=== PATIENT | female | born 1980 | race Caucasian/White ===

== ENCOUNTER 2020-04-01 05:57 | Inpatient (IN) | payer BC ==
--- OUTSIDE RECORDS SUMMARY | 2020-03-22 14:59 | XMS ---
:1980 Author Organization [facility] Support Name Relationship Address Phone [facility] Unavailable [address] [place] [address] RUPAL DIALLO MOTHER [address] [phone] [place] [address] Re-disclosure Warning The records that you are about to access may contain information from federally- assisted alcohol or drug abuse programs. If such information is present, then the following federally mandated warning applies: This information has been disclosed to you from records protected by federal confidentiality rules (42 CFR part 2). The federal rules prohibit you from making any further disclosure of this information unless further disclosure is expressly permitted by the written consent of the person to whom it pertains or as otherwise permitted by 42 CFR part 2. A general authorization for the release of medical or other information is NOT sufficient for this purpose. The Federal rules restrict any use of the information to criminally investigate or prosecute any alcohol or drug abuse patient.The records that you are about to access may contain highly sensitive health information, the redisclosure of which is protected by Article 27-F of the [facility] Public Health law. If you continue you may haveaccess to information: Regarding HIV / AIDS; Provided by facilities licensed or operated by the [facility] Office of Mental Health; or Provided by the [facility] Office for People With Developmental Disabilities. If such information is present, then the following [facility] mandated warning applies: This information has been disclosed to you from confidential records which are protected by state law. State law prohibits you from making any further disclosure of this information without the specific written consent of the person to whom it pertains, or as otherwise permitted by law. Any unauthorized further disclosure in violation of state law may result in a fine or senior care sentence or both. A general authorization for the release of medical or other information is NOT sufficient authorization for further disclosure. Insurance Providers Payer name Policy type / Policy ID Covered Covered constitution party's Policy Plan Coverage type constitution party ID relationship to Dia Information dia BC PPO [id number] SP [id number] Results ID Date Data Source [id number] 02/23/2020 02:48:00 PM EDT [facility] Name Value Range Interpretation Description Data Sup porting Code Source(s) Document(s ) SARS [facility] coronavirus 2 RNA This lab was ordered by CHRIS begum [facility] and reported by [facility]. Procedure
[2020-03-27 17:00] VITALS: BMI 38.3
--- OUTSIDE RECORDS SUMMARY | 2020-04-01 06:00 | XMS ---
:1980 Author Organization [facility] Support Name Relationship Address Phone YO[facility] Unavailable [address] [place] [address] [facility] Unavailable [address] [phone] [place] [address] RUPAL DIALLO MOTHER [address] [place] [address] Re-disclosure Warning The records that you are [...] is protected by Article 27-F of the [facility] Public Health law. If you continue you may haveaccess to information: Regarding HIV / AIDS; Provided by facilities licensed or operated by the [facility] Office of Mental Health; or Provided by the [facility] Office for People With Developmental Disabilities. If such information is present, then the following [facility] mandated warning applies: This information has [...] Policy type / Policy ID Covered Covered green party's Policy Plan Coverage type green party ID relationship to Dia Information dia [facility] [id number] [facility] [id number] Results ID Date Data Source [id number] 02/23/2020 02:48:00 PM EDT [facility] Name Value Range Interpretation Description Data Sup porting Code Source(s) Document(s ) SARS [facility] coronavirus 2 RNA This lab was ordered by CHRIS [facility] and reported by [facility]. Procedure
[2020-04-01] MEDS ORDERED: VANCOMYCIN 1,000 MG VIAL (RESTRICTED TO ID ONLY) ONE (07:06)
--- NOTE | 2020-04-01 07:09 | HP ---
History & Physical Update - Physical Physical: No Change - Assessment Assessment: No Change - Plan Plan: No Change
[2020-04-01] MEDS ORDERED: BUPIVICAINE 0.25%/MORPH PF/KETOROLAC - 51ML DISP.SYRINGE IA ONE ×2 (10:53→11:18)
[2020-04-01] MEDS ORDERED: VANCOMYCIN 1,000 MG VIAL (RESTRICTED TO ID ONLY) IVPB ONE (11:19)
[2020-04-01] MEDS ORDERED: MAG HYDROX/AL HYDROX/SIMETH 30 ML UNIT-DOSE CUP PO PRN (12:08)
[2020-04-01] MEDS ORDERED: ONDANSETRON 4 MG/2 ML VIAL IVPUSH PRN (12:08)
--- NOTE | 2020-04-01 12:11 | OPR ---
DATE OF OPERATION: 03/22/2020 TITLE OF OPERATION: Right total Knee Replacement PREOPERATIVE DIAGNOSIS: Right Knee Osteoarthritis POSTOPERATIVE DIAGNOSIS: Right Knee Medial Compartment Osteoarthritis SURGEON: Song Contreras DO EVALUATION ANALYST: Javad Gallego DO ANESTHESIA: Spinal anesthesia with regional block SPECIMEN: bone cuts PROSTHETIC DEVICE/IMPLANT: Triathlon X3 Asymmetric patella size 32mm, 10mm thickness; Triathlon Posterior Stabilized Femur Size 5; Triathlon Tibial Baseplate Size 4; Triathlon [id number] cemented tibia stem; Triathlon Tibial Bearing insert - PS - size 4, 11mm thickness. COMPLICATIONS: none EBL: 100mL TOURNIQUET TIME: 108 mins INDICATIONS FOR SURGERY: Ms. Huynh is a 40 year old female who presented in the preoperative setting with a chief complaint of severe right knee osteoarthritis with severe knee pain, and a notable valgus deformity; The patient was initially treated non- operatively with injections, medications, and physical therapy, but continued to have severe pain and ambulatory dysfunction. She was therefore indicated for a right total knee replacement with MAKOplasty robotic navigation. The risks and benefits of surgery and anesthesia were discussed in detail including but not limited to infection, continued pain, bleeding, blood clot, scarring/arthrofibrosis, damage to vessels and nerves, instability or loosening of implant, difficulty ambulating, dorina-prosthetic fracture, failure to obtain the desired result, failure to heal, failure to return to significant activity, need for additional surgery in the future. Understanding the risks and benefits, Ms. Huynh opted to proceed with surgical management. SURGEON'S NARRATIVE: On the day of surgery, the patient was taken to the operating room and placed on the OR table. Spinal anesthesia was administered by the anesthesiologist. The patient was then positioned supine on the table, and all bony prominences were padded. The knee was then prepped and draped in the usual sterile fashion, and IV antibiotics were given for infection prophylaxis. A surgical time-out was then performed with the team, and the patient's identity, procedure, side, availability of implants, and the administration of antibiotics were performed. With the knee flexed, two parallel bicortical self-drilling pins were placed in the tibial diaphysis after making stab incisions and bluntly dissecting down to bone. Two pins were then placed in the distal supracondylar femur. The knee was exanguinated and tourniquet inflated. A midline incision was then made and carried down through the subcutaneous fat to the underlying retinaculum. A medial parapatellar arthrotomy was performed. This was followed by a subperiosteal dissection of the tissue off the proximal, medial tibia. A portion of the fat pad was removed from under the patellar tendon, and a small portion of fat was excised off the distal supracondylar femur. Electrocautery was used to achieve hemostasis. The knee was then flexed further and the anterior horn of the lateral meniscus was released from the midline. Next, the anterior and posterior cruciate ligaments were transected. Grade 4 changes were noted diffusely throughout the knee. Femoral and tibial checkpoints were then placed in the appropriate locations. The VSE EVAKUATORY ROSSII navigation arrays were attached to the femoral and tibial pins and the lower extremity was then registered to the robotic navigation device using various joint movements, as well as inputting several dozen reference points. The knee was then taken through a full range of motion with a corrective force applied. Alignment in varus and valgus, as well as flexion and extension, and soft tissue balance was measured in various positions. The navigation device showed a numerical and graphic representation of the soft tissue balance. The components were repositioned virtually using the software until optimal soft tissue balance was achieved on the screen. Once this was accomplished, the final plan was saved and sent to the robot. Self-retaining retractors were then placed at the joint line for exposure and protection of the collateral ligaments. The robot was brought into the sterile field and registered with the navigation device. The robotic arm with attached oscillating saw blade was then used to perform femoral and tibial bone cuts as per the saved software plan. The femoral box cut was made using the appropriately - sized manual cutting guide. The knee was then irrigated. Trial components were placed and the knee was taken through a full range of motion to assess soft tissue balance and alignment. The range of motion was found to be excellent and the soft tissue balance was optimal and according to plan. The knee was then put into extension and the patella everted. The synovium around the patella was circumscribed with electrocautery. A caliper was used to measure the patellar thickness, and a saw was then used to resect the patella using a patella resection guide. The cut was then sized and drilled for the appropriate patellar button, with care taken to medialize it. A trial patella was then placed and the knee was again taken through a full range of motion. The knee was found to have both good balance and good patellar tracking. All of the components were removed except the tibial base plate. The appropriate instrumentation was used to drill and punch the proximal tibia for the keel of the final component. All bony surfaces were cleaned with the pulsatile lavage and dried. Bone cement was then prepared on the back table, and the final components were cemented in place in the usual fashion. Extruded cement was removed. The polyethylene trial was placed, the knee was put into extension, and axial pressure was applied for compression while the cement hardened. The patellar button was similarly cemented into place. Once the cement had hardened, the knee was taken through a full range of motion to assess stability, balance, and patellar tracking. This was found to be optimal and the trial polyethylene was exchanged for the appropriately sized real implant. An approximately three-minute diluted betadine soak was performed, followed by thorough pulsatile irrigation with normal saline. One gram of vancomycin powder was then spread around the joint tissues. A periarticular injection was used to locally infiltrate the capsular tissues surrounding the implant and prosthesis. Once this was done, the tourniquet was let down and all bleeders were cauterized. The parapatellar incision was closed with #1 Vicryl suture in a simple stitch fashion, and the subcuticular skin was closed with 0 Vicryl, 2-0 Vicryl suture, and the skin with jolly. The tibial and femoral pins were removed and the incisions were irrigated thorougly, then closed with 3-0 Monocryl suture. A sterile Aquacell dressing and RAJENDRA bandage was placed and the patient was placed in CHRIS stockings and bilateral SCD's. She tolerated procedure well and arrived in recovery in stable condition. POST-OP PLAN: Pain Control DVT Prophylaxis (ASA 325MG BID x 6 weeks; SCDs while in bed, encourage early ambulation) WBAT/Physical Therapy daily D/C Jolly POD 14 F/U Daily AM Labs Will see her in my office on POD 14 for a post-operative visit, wound check, and staple removal Medical management Dispo Planning
[2020-04-01] MEDS ORDERED: LACTATED RINGERS SOLUTION 1,000 ML IV SCH (12:15)
[2020-04-01 12:34] LABS: HEMATOCRIT 35.7 % (32.4-45.2); HEMOGLOBIN 11.6 GM/dl (10.7-15.3); MCH 28.5 pg (25.7-33.7); MCHC 32.6 g/dl (32.0-36.0); MEAN CELL VOLUME 87.6 fl (80-96); PLATELET COUNT 531 K/MM3 (134-434); RBC 4.07 M/mm3 (3.60-5.2); RDW 16.7 % (11.6-15.6); WHITE BLOOD COUNT 12.5 K/mm3 (4.0-10.8)
[2020-04-01] MEDS ORDERED: oxyCODONE HCL 5 MG TABLET PO PRN (13:24)
[2020-04-01] MEDS ORDERED: ACETAMINOPHEN 325 MG TABLET (FP) ONE (13:25)
[2020-04-01] MEDS: ACETAMINOPHEN 325 MG TABLET (FP) PO SCH ×3 (13:25→20:01)
[2020-04-01] MEDS ORDERED: clonazePAM 0.5 MG TABLET PO PRN (14:19)
--- NOTE | 2020-04-01 14:23 | HP ---
CHIEF COMPLAINT: Right knee pain Ortho: Dr. Contreras HISTORY OF PRESENT ILLNESS: 40 year-old female with a PMH significant for Iron-deficiency anemia with reactive thrombocytosis, opioid-induced constipation, celiac disease, depression, and right knee OA now s/p right total knee JOSE ROBERTO replacement with Dr. Contreras today. Recent Travel: No PAST MEDICAL HISTORY: Iron-deficiency anemia Thrombocytosis Opioid-induced constipation Celiac disease Osteoarthritis Depression PAST SURGICAL HISTORY: Bariatric lap band surgery 2004 Gastric sleeve 2010 Tummy tuck 2006 Excess skin removed on arms Breast implants Torn meniscus repair Social History: single, lives in [place], [employer]; works as a teacher in [employer] Smoking: quit 2015 Alcohol: social Drugs: no Family history: mother with DDD and OA; father healthy; sister with PE while on OCP and smoking; Allergies No Known Allergies Allergy (Verified 09/14/13 18:50) HOME MEDICATIONS: Home Medications Medication Instructions Recorded Duloxetine HCl [Cymbalta] 60 mg PO HS 02/15/20 clonazePAM [Klonopin -] 0.5 mg PO ASDIR PRN 02/15/20 Aripiprazole [Abilify -] 2 mg PO HS 03/27/20 Lamotrigine [Lamictal -] 100 mg PO HS 03/27/20 Oxycodone HCl/Acetaminophen 1 each PO TID 03/27/20 [Oxycodone-Acetaminophen 10-325] Quetiapine Fumarate [Seroquel -] 25 mg PO HS 03/27/20 Zolpidem Tartrate [Ambien] 10 mg PO HS PRN 03/27/20 REVIEW OF SYSTEMS CONSTITUTIONAL: Absent: fever, chills, diaphoresis, generalized weakness, malaise, loss of appetite, weight change HEENT: Absent: rhinorrhea, nasal congestion, throat pain, throat swelling, difficulty swallowing, mouth swelling, ear pain, eye pain, visual changes CARDIOVASCULAR: Absent: chest pain, syncope, palpitations, irregular heart rate, lightheadedness, peripheral edema RESPIRATORY: Absent: cough, shortness of breath, dyspnea with exertion, orthopnea, wheezing, stridor, hemoptysis GASTROINTESTINAL: Absent: abdominal pain, abdominal distension, nausea, vomiting, diarrhea, constipation, melena, hematochezia GENITOURINARY: Absent: dysuria, frequency, urgency, hesitancy, hematuria, flank pain, genital pain MUSCULOSKELETAL: Absent: myalgia, arthralgia, joint swelling, back pain, neck pain SKIN: Absent: rash, itching, pallor HEMATOLOGIC/IMMUNOLOGIC: Absent: easy bleeding, easy bruising, lymphadenopathy, frequent infections ENDOCRINE: Absent: unexplained weight gain, unexplained weight loss, heat intolerance, cold intolerance NEUROLOGIC: Absent: headache, focal weakness or paresthesias, dizziness, unsteady gait, seizure, mental status changes, bladder or bowel incontinence PSYCHIATRIC: Absent: anxiety, depression, suicidal or homicidal ideation, hallucinations. PHYSICAL EXAMINATION Vital Signs - 24 hr 04/01/20 04/01/20 04/01/20 06:40 12:05 12:10 Temperature 98.4 F 98.4 F Pulse Rate 82 87 80 Respiratory 18 15 16 Rate Blood Pressure 114/84 105/53 L 101/61 O2 Sat by Pulse 100 100 100 Oximetry (%) 04/01/20 04/01/20 04/01/20 12:15 12:30 12:45 Temperature Pulse Rate 75 77 68 Respiratory 18 16 17 Rate Blood Pressure 102/51 L 99/56 L 99/61 O2 Sat by Pulse 100 100 97 Oximetry (%) 04/01/20 04/01/20 04/01/20 13:00 13:15 13:30 Temperature Pulse Rate 69 64 65 Respiratory 17 18 16 Rate Blood Pressure 104/66 101/60 108/67 O2 Sat by Pulse 97 99 99 Oximetry (%) GENERAL: Awake, alert, and fully oriented, in no acute distress. HEAD: Normal with no signs of trauma. EYES: Pupils equal, round and reactive to light, extraocular movements intact, sclera anicteric, conjunctiva clear. No lid lag. EARS, NOSE, THROAT: Ears normal, nares patent, oropharynx clear without exudates. Moist mucous membranes. NECK: Normal range of motion, supple without lymphadenopathy, JVD, or masses. LUNGS: Breath sounds equal, clear to auscultation bilaterally. No wheezes, and no crackles. No accessory muscle use. HEART: Regular rate and rhythm, normal S1 and S2 without murmur, rub or gallop. ABDOMEN: Soft, nontender, not distended, normoactive bowel sounds, no guarding, no rebound, no masses. No hepatomegaly or splenomegaly. MUSCULOSKELETAL: Normal range of motion at all joints. No bony deformities or tenderness. No CVA tenderness. UPPER EXTREMITIES: 2+ pulses, warm, well-perfused. No cyanosis. No clubbing. No peripheral edema. LOWER EXTREMITIES: 2+ pulses, warm, well-perfused. No calf tenderness. No peripheral edema. NEUROLOGICAL: Cranial nerves II-XII intact. Normal speech. Normal gait. PSYCHIATRIC: Cooperative. Good eye contact. Appropriate mood and affect. SKIN: Warm, dry, normal turgor, no rashes or lesions noted, normal capillary refill. Laboratory Results - last 24 hr 04/01/20 12:15 WBC 12.5 H RBC 4.07 Hgb 11.6 Hct 35.7 MCV 87.6 MCH 28.5 MCHC 32.6 RDW 16.7 H Plt Count 531 H MPV 9.0 Pre op Hgb 12.2 BUN 11 Cr 0.7 Intra op ASSESSMENT/PLAN: 40 year-old female with a PMH significant for Iron-deficiency anemia with reactive thrombocytosis, opioid-induced constipation, celiac disease, depression, and right knee OA now s/p right total knee JOSE ROBERTO replacement with Dr. Contreras today. Right total knee JOSE ROBERTO replacement --POD #0 --perioperative antibiotics per surgery --pain management per surgery, presently well-managed --ASA 325mg BID --protonix --bowel regimen --incentive spirometry Iron-deficiency anemia Thrombocytosis --pre-op heme workup considers thrombocytosis reactive to anemia and recommends standard post-operative anticoagulation Opioid-induced constipation --bowel regimen Celiac disease --not on gluten free diet Depression --continue Abilify, clonazepam, duloxetine, lamotrigine, seroquel FEN Fluids: PO intake adequate Electrolytes: replete as indicated Nutrition: regular diet DVT prophylaxis: OOB, ambulation, SCDs, TEDs, ASA 325 BID Physical therapy Dispo: continues to require inpatient care. Full code. Family Medical History Family History: As Documented Visit type - Emergency Visit Emergency Visit: No - New Patient This patient is new to me today: Yes Date on this admission: 04/01/20 - Critical Care Critical Care patient: No
[2020-04-01] MEDS ORDERED: ceFAZolin SODIUM 1 GM VIAL ONE ×2 (15:51→23:57)
[2020-04-01] MEDS ORDERED: DEXTROSE 5%-WATER 100 ML IVPB ONE ×2 (15:51→23:58)
[2020-04-01] MEDS: oxyCODONE HCL 5 MG TABLET PO PRN ×2 (16:07→20:02)
[2020-04-01] MEDS: CEFAZOLIN 3 GM in DEXTROSE 5%-WATER 100 ML IVPB SCH (17:28)
[2020-04-01] MEDS: GABAPENTIN 300 MG CAPSULE PO SCH (21:01)
[2020-04-01] MEDS: SENNOSIDES/DOCUSATE COMBO (SENNA PLUS) TABLET (UD) PO SCH (21:01)
[2020-04-01] MEDS: DULoxetine HCL 30 MG CAPSULE.DR PO SCH (21:01)
[2020-04-01] MEDS: lamoTRIgine 100 MG TABLET PO SCH (21:02)
[2020-04-01] MEDS: ASCORBIC ACID 500 MG TABLET (FP) PO SCH (21:02)
[2020-04-01] MEDS: ARIPiprazole 2 MG TABLET PO SCH (21:02)
[2020-04-01] MEDS: oxyCODONE HCL 10 MG SUSTAINED ACTING TABLET PO SCH (21:02)
[2020-04-01] MEDS: QUEtiapine FUMARATE 25 MG TABLET PO SCH (22:38)
[2020-04-02] MEDS: CEFAZOLIN 3 GM in DEXTROSE 5%-WATER 100 ML IVPB SCH (00:30)
[2020-04-02] MEDS: ACETAMINOPHEN 325 MG TABLET (FP) PO SCH ×4 (03:00→21:18)
[2020-04-02] MEDS ORDERED: KETOROLAC TROMETHAMINE 30 MG/1 ML VIAL IVPUSH ONE (08:22)
--- NOTE | 2020-04-02 08:22 | PN ---
Progress Note (short form) - Note Progress Note: Anesthesia postop note 40 y/o F s/p spinal anesthesia/nerve block for total knee replacement POD#1, vss, aaox3, some pain, sensory motor intact distally No anesthesia complications.
--- NOTE | 2020-04-02 08:28 | PN ---
Progress Note (short form) - Note Progress Note: ORTHOPEDIC SURGERY PROGRESS NOTE Department of Orthopedic Surgery SUBJECTIVE No acute events overnight. No complaints currently. Denies chest pain, shortness of breath, or calf pain. No nausea or vomiting. Tolerating oral intake. Pain control difficult overnight, but improving. PHYSICAL EXAMINATION General: Alert, oriented, cooperative and no distress. Right Lower Extremity: Dressing intact; Skin intact, no lesions, rashes or ulcers noted. Muscle mass equal and symmetric to contralateral side. No atrophy noted. No masses or effusions noted. No tenderness to palpation. LROM of the knee secondary to swelling and pain; Full passive and active ROM of the ankle and foot/toes, free from pain. EHL/TA/GS motor intact; SILT distally; 2+ DP pulses; Cap refill brisk. DVT Exam: No evidence of DVT seen on physical exam; No cords or calf tenderness; No significant calf/ankle edema. Intake & Output 03/31/20 04/01/20 04/02/20 23:59 23:59 23:59 Intake Total 7800 Output Total 800 Balance 7000 Intake: IV 1300 Oral 500 Other 6000 Output: Urine 700 Void 700 Estimated Blood Loss 100 Other: Voiding Method Urinal Toilet # Unmeasured Voids Void 1 Weight 245 lb Height 5 ft 7 in Body Mass Index (BMI) 38.3 Weight Measurement Method Standing Scale Active Medications Generic Name Dose Route Start Last Admin Trade Name Freq PRN Reason Stop Dose Admin Acetaminophen 650 mg 04/01/20 15:00 04/02/20 03:00 Tylenol - PO 04/04/20 14:59 650 mg Q6H CHAZ Administration Al Hydroxide/Mg Hydroxide 30 ml 04/01/20 12:08 Mylanta Oral Suspension - PO Q4H PRN DYSPEPSIA Aripiprazole 2 mg 04/01/20 22:00 04/01/20 21:02 Abilify PO 2 mg HS CHAZ Administration Ascorbic Acid 500 mg 04/01/20 22:00 04/01/20 21:02 Vitamin C - PO 500 mg BID CHAZ Administration Aspirin 325 mg 04/02/20 10:00 Asa - PO BID CHAZ Clonazepam 0.5 mg 04/01/20 14:19 Klonopin - PO Q12H PRN ANXIETY Duloxetine HCl 60 mg 04/01/20 22:00 04/01/20 21:01 Cymbalta - PO 60 mg HS CHAZ Administration Fentanyl 50 mcg 04/01/20 13:23 Sublimaze Injection - IVPUSH [id number] PRN PAIN-PACU ORDER X 4 DOSES ONLY Gabapentin 300 mg 04/01/20 22:00 04/01/20 21:01 Neurontin - PO 04/04/20 21:59 300 mg BID CHAZ Administration Ketorolac Tromethamine 30 mg 04/02/20 08:22 Toradol Injection - IVPUSH 04/02/20 08:23 ONCE ONE Lamotrigine 100 mg 04/01/20 22:00 04/01/20 21:02 Lamictal - PO 100 mg HS CHAZ Administration Multivitamins/Minerals/Vitamin C 1 tab 04/02/20 10:00 Tab-A-Vit - PO DAILY [facility] Ondansetron HCl 4 mg 04/01/20 12:08 Zofran Injection IVPUSH Q6H PRN NAUSEA Oxycodone HCl 10 mg 04/01/20 22:00 04/01/20 21:02 Oxycontin - PO 04/04/20 13:25 10 mg BID CHAZ Administration Oxycodone HCl 10 mg 04/01/20 13:24 Roxicodone - PO Q3H PRN PAIN LEVEL 1-5 Oxycodone HCl 15 mg 04/01/20 13:24 04/01/20 20:02 Roxicodone - PO 15 mg Q4H PRN Administration PAIN LEVEL 6-10 Pantoprazole Sodium 40 mg 04/02/20 10:00 Protonix - PO DAILY [facility] Quetiapine Fumarate 25 mg 04/01/20 22:00 04/01/20 22:38 Seroquel - PO 25 mg HS [facility] Administration Senna/Docusate Sodium 2 tablet 04/01/20 22:00 04/01/20 21:01 Pericolace - PO 2 tablet BID CHAZ Administration Vital Signs (last) Temp Pulse Resp BP Pulse Ox 98.0 F 76 18 108/55 L 97 04/02/20 06:00 04/02/20 06:00 04/02/20 06:00 04/02/20 06:00 04/02/20 06:00 Laboratory 04/01/20 12:15 ASSESSMENT AND PLAN Ms. Huynh is a 40 year old female s/p Right TKA, POD 1 - Pain control: Transition to oral pain medications, minimize narcotic use - DVT prophylaxis (ASA 325mg BID x 6 weeks; SCD's B/L) - Ice/Elevation Right knee - Elevate HOB, encourage oral intake - Appreciate medical management (Nutrition optimization, decubitus precautions heel/sacrum) - PT daily; WBAT - Dispo planning
[2020-04-02 08:33] LABS: CALCIUM 7.7 mg/dl (8.5-10); CREATININE 0.6 mg/dl (0.55-1.3); POTASSIUM 3.8 mmol/L (3.5-5.1)
--- NOTE | 2020-04-02 09:50 | PN ---
Physical Exam: SUBJECTIVE: Patient seen and examined in PT room. OBJECTIVE: Vital Signs Period Temp Pulse Resp BP Sys/Novoa Pulse Ox Last 24 Hr 98.0 F-98.7 F 64-87 15-18 99-115/51-68 95-100 GENERAL: The patient is awake, alert, and fully oriented, in no acute distress. LUNGS: Breath sounds equal, clear to auscultation bilaterally, no wheezes, no crackles, no accessory muscle use. HEART: Regular rate and rhythm, S1, S2 ABDOMEN: Soft, nontender, nondistended RLE: Surgical dressings c/d/i; +flex/extend toes, sensory intact NEUROLOGICAL: Cranial nerves II through XII grossly intact. Normal speech Laboratory Results - last 24 hr 04/01/20 04/02/20 12:15 07:01 WBC 12.5 H RBC 4.07 Hgb 11.6 Hct 35.7 MCV 87.6 MCH 28.5 MCHC 32.6 RDW 16.7 H Plt Count 531 H MPV 9.0 Sodium 138 Potassium 3.8 Chloride 109 H Carbon Dioxide 24 Anion Gap 5 L BUN 11.0 Creatinine 0.6 Est GFR (CKD-EPI)AfAm 130.30 Est GFR (CKD-EPI)NonAf 112.42 Random Glucose 94 Calcium 7.7 L Active Medications Generic Name Dose Route Start Last Admin Trade Name Freq PRN Reason Stop Dose Admin Acetaminophen 650 mg 04/01/20 15:00 04/02/20 08:36 Tylenol - PO 04/04/20 14:59 650 mg Q6H CHAZ Administration Al Hydroxide/Mg Hydroxide 30 ml 04/01/20 12:08 Mylanta Oral Suspension - PO Q4H PRN DYSPEPSIA Aripiprazole 2 mg 04/01/20 22:00 04/01/20 21:02 Abilify PO 2 mg HS CHAZ Administration Ascorbic Acid 500 mg 04/01/20 22:00 04/01/20 21:02 Vitamin C - PO 500 mg BID CHAZ Administration Aspirin 325 mg 04/02/20 10:00 Asa - PO BID CHAZ Clonazepam 0.5 mg 04/01/20 14:19 Klonopin - PO Q12H PRN ANXIETY Duloxetine HCl 60 mg 04/01/20 22:00 04/01/20 21:01 Cymbalta - PO 60 mg HS CHAZ Administration Fentanyl 50 mcg 04/01/20 13:23 Sublimaze Injection - IVPUSH [id number] PRN PAIN-PACU ORDER X 4 DOSES ONLY Gabapentin 300 mg 04/01/20 22:00 04/01/20 21:01 Neurontin - PO 04/04/20 21:59 300 mg BID CHAZ Administration Lamotrigine 100 mg 04/01/20 22:00 04/01/20 21:02 Lamictal - PO 100 mg HS CHAZ Administration Multivitamins/Minerals/Vitamin C 1 tab 04/02/20 10:00 Tab-A-Vit - PO DAILY CHAZ Ondansetron HCl 4 mg 04/01/20 12:08 Zofran Injection IVPUSH Q6H PRN NAUSEA Oxycodone HCl 10 mg 04/01/20 22:00 04/01/20 21:02 Oxycontin - PO 04/04/20 13:25 10 mg BID CHAZ Administration Oxycodone HCl 10 mg 04/01/20 13:24 Roxicodone - PO Q3H PRN PAIN LEVEL 1-5 Oxycodone HCl 15 mg 04/01/20 13:24 04/01/20 20:02 Roxicodone - PO 15 mg Q4H PRN Administration PAIN LEVEL 6-10 Pantoprazole Sodium 40 mg 04/02/20 10:00 Protonix - PO DAILY [facility] Quetiapine Fumarate 25 mg 04/01/20 22:00 04/01/20 22:38 Seroquel - PO 25 mg HS CHAZ Administration Senna/Docusate Sodium 2 tablet 04/01/20 22:00 04/01/20 21:01 Pericolace - PO 2 tablet BID CHAZ Administration ASSESSMENT/PLAN: 40 year-old female with a PMH significant for Iron-deficiency anemia with reactive thrombocytosis, opioid-induced constipation, celiac disease, depression, and right knee OA now s/p right total knee JOSE ROBERTO replacement. Right total knee JOSE ROBERTO replacement --POD #1 --perioperative antibiotics per surgery --pain management per surgery, presently well-managed --ASA 325mg BID --protonix --bowel regimen --incentive spirometry Iron-deficiency anemia Thrombocytosis --pre-op heme workup considers thrombocytosis reactive to anemia and recommends standard post-operative anticoagulation Opioid-induced constipation --bowel regimen Celiac disease --not on gluten free diet Depression --continue Abilify, clonazepam, duloxetine, lamotrigine, seroquel FEN Fluids: PO intake adequate Electrolytes: replete as indicated Nutrition: regular diet DVT prophylaxis: OOB, ambulation, SCDs, TEDs, ASA 325 BID Physical therapy Dispo: continues to require inpatient care. Full code. Visit type - Emergency Visit Emergency Visit: No - New Patient This patient is new to me today: No - Critical Care Critical Care patient: No
[2020-04-02] MEDS: SENNOSIDES/DOCUSATE COMBO (SENNA PLUS) TABLET (UD) PO SCH ×2 (10:05→21:17)
[2020-04-02] MEDS: ASCORBIC ACID 500 MG TABLET (FP) PO SCH ×2 (10:05→21:17)
[2020-04-02] MEDS: ASPIRIN 325 MG TABLET PO SCH ×2 (10:05→21:17)
[2020-04-02] MEDS: oxyCODONE HCL 10 MG SUSTAINED ACTING TABLET PO SCH (10:06)
[2020-04-02] MEDS: MULTIVITAMINS (DAILY MVI) TABLET (FP) PO SCH (10:06)
[2020-04-02] MEDS: PANTOPRAZOLE 40 MG TABLET PO SCH (10:06)
[2020-04-02] MEDS: GABAPENTIN 300 MG CAPSULE PO SCH ×2 (10:06→21:17)
[2020-04-02] MEDS: ACETAMINOPHEN 1000 MG/100 ML VIAL (NON FORMULARY) IVPB PRN ×2 (14:40→21:18)
[2020-04-02] MEDS: oxyCODONE HCL 5 MG TABLET PO PRN ×2 (17:32→21:18)
[2020-04-02] MEDS: lamoTRIgine 100 MG TABLET PO SCH (21:17)
[2020-04-02] MEDS: DULoxetine HCL 30 MG CAPSULE.DR PO SCH (21:17)
[2020-04-02] MEDS: QUEtiapine FUMARATE 25 MG TABLET PO SCH (21:17)
[2020-04-02] MEDS: ARIPiprazole 2 MG TABLET PO SCH (21:18)
[2020-04-03] MEDS: ACETAMINOPHEN 325 MG TABLET (FP) PO SCH ×2 (03:55→09:26)
[2020-04-03] MEDS: oxyCODONE HCL 5 MG TABLET PO PRN ×2 (06:01→09:27)
--- NOTE | 2020-04-03 08:18 | DS ---
"Physical Exam: SUBJECTIVE: Patient seen and examined. Seen walking with PT. OBJECTIVE: Vital Signs Period Temp Pulse Resp BP Sys/Novoa Pulse Ox Last 24 Hr 97.8 F-98.9 F 72-90 18-18 91-115/50-70 94-99 PHYSICAL EXAM GENERAL: The patient is awake, alert, and fully oriented, in no acute distress. LUNGS: Breath sounds equal, clear to auscultation bilaterally, no wheezes, no crackles, no accessory muscle use. HEART: Regular rate and rhythm, S1, S2 ABDOMEN: Soft, nontender, nondistended RLE: Surgical dressings c/d/i; +flex/extend toes, sensory intact NEUROLOGICAL: Cranial nerves II through XII grossly intact. Normal speech LABS Laboratory Results - last 24 hr 04/02/20 07:01 Sodium 138 Potassium 3.8 Chloride 109 H Carbon Dioxide 24 Anion Gap 5 L BUN 11.0 Creatinine 0.6 Est GFR (CKD-EPI)AfAm 130.30 Est GFR (CKD-EPI)NonAf 112.42 Random Glucose 94 Calcium 7.7 L HOSPITAL COURSE: Date of Admission:04/01/20 Date of Discharge: 04/03/20 40 year-old female with a PMH significant for iron-deficiency anemia with reactive thrombocytosis, opioid-induced constipation, celiac disease, depression, and right knee OA now s/p right total knee JOSE ROBERTO replacement. Right total knee JOSE ROBERTO replacement --perioperative antibiotics complete --pain management per surgery, presently well-managed; patient has adequate supply of percocet at home (see ISTOP below) --ASA 325mg BID x 6 weeks Iron-deficiency anemia Thrombocytosis --pre-op heme workup considers thrombocytosis reactive to anemia and recommends standard post-operative anticoagulation Opioid-induced constipation --bowel regimen Celiac disease --not on gluten free diet Depression --continue Abilify, clonazepam, duloxetine, lamotrigine, seroquel ISTOP Search Terms: yehuda huynh, 1980 Search Date: 04/03/2020 09:30:51 AM The Drug Utilization Report below displays all of the controlled substance prescriptions, if any, that your patient has filled in the last twelve months. The information displayed on this report is compiled from pharmacy submissions to the Department, and accurately reflects the information as submitted by the pharmacies. This report was requested by: Noemi Toledo | Reference #: [id number] Others' Prescriptions Patient Name: Yehuda Huynh Date: 1980 Address: [address] [place], [place] [id number] Sex: Female Rx Written Rx Dispensed Drug Quantity Days Supply Prescriber Name Payment Method Dispenser 03/27/2020 04/01/2020 zolpidem tartrate 10 mg tablet 30 30 Humphrey Ramos MD Insurance [facility] #[id number] 03/28/2020 04/01/2020 oxycodone-acetaminophen 10-325 mg tab 180 30 Stanley, Ous[employer] Insurance [facility] #[id number] 02/27/2020 03/02/2020 oxycodone-acetaminophen 10-325 mg tab 90 30 Stanley, [facility] Insurance [facility] #[id number] Date: 1980 Address: [address] [place] [id number] Sex: Female Rx Written Rx Dispensed Drug Quantity Days Supply Prescriber Name Payment Method Dispenser 01/15/2020 02/28/2020 zolpidem tartrate 10 mg tablet 30 30 Humphrey Ramos MD Insurance [facility] #[id number] 01/24/2020 01/30/2020 oxycodone-acetaminophen 10-325 mg tab 90 30 Stanley, [employer] Insurance [facility] #[id number] 01/15/2020 01/27/2020 zolpidem tartrate 10 mg tablet 30 30 RamosHumphrey peguero MD Insurance [facility] #[id number] 01/15/2020 01/15/2020 clonazepam 1 mg tablet 90 30 RamosHumphrey peguero MD Insurance [facility] #[id number] 12/20/2019 12/31/2019 oxycodone-acetaminophen 10-325 mg tab 90 30 Robert Caballero MD Insurance [facility] #[id number] 10/30/2019 12/27/2019 zolpidem tartrate 10 mg tablet 30 30 RamosHumphrey peguero MD Insurance [facility] #[id number] 11/27/2019 12/02/2019 oxycodone-acetaminophen 10-325 mg tab 90 30 Stanley, [employer] Insurance [facility] #[id number] 10/30/2019 11/27/2019 zolpidem tartrate 10 mg tablet 30 30 Ramos, Humphrey [employer] Insurance [facility] #[id number] 10/30/2019 11/01/2019 clonazepam 1 mg tablet 90 30 [id number] 11/01/2019 11/01/2019 oxycodone-acetaminophen 10-325 mg tab 60 30 Stanley, [employer] Insurance [facility] #[id number] 08/17/2019 10/28/2019 zolpidem tartrate 10 mg tablet 30 30 Ramos, Humphrey ASCENC[employer] Insurance [facility] #[id number] 08/17/2019 09/23/2019 zolpidem tartrate 10 mg tablet 30 30 Ramos, Humphrey [employer] Insurance [facility] #[id number] 09/06/2019 09/06/2019 oxycodone-acetaminophen 10-325 mg tab 60 30 Stanley, [employer] Insurance [facility] #[id number] 08/17/2019 08/25/2019 zolpidem tartrate 10 mg tablet 30 30 Ramos, Humphrey [employer] Insurance [facility] #[id number] 08/17/2019 08/17/2019 clonazepam 1 mg tablet 90 30 Ramos, Humphrey [employer] Insurance [facility] #[id number] 05/23/2019 07/25/2019 zolpidem tartrate 10 mg tablet 30 30 Ramos, Humphrey [employer] Insurance [facility] #[id number] 05/23/2019 06/23/2019 zolpidem tartrate 10 mg tablet 30 30 Ramos, Humphrey [employer] Insurance [facility] #[id number] 06/01/2019 06/01/2019 oxycodone-acetaminophen 10-325 mg tab 28 14 Stanley, [place] Insurance [facility] #[id number] 05/25/2019 05/27/2019 oxycodone-acetaminophen 5-325 mg tab 60 30 Stanley, [facility] Insurance [facility] #[id number] 05/23/2019 05/23/2019 clonazepam 1 mg tablet 90 30 Ramos, Humphrey [facility] #[id number] 05/23/2019 05/23/2019 zolpidem tartrate 10 mg tablet 30 30 Ramos, Humphrey [employer] Insurance [facility] #[id number] 03/06/2019 04/24/2019 zolpidem tartrate 10 mg tablet 30 30 Humphrey Ramos MD [facility] #[id number] Minutes to complete discharge: 35 Discharge Summary Problems reviewed: Yes Reason For Visit: RIGHT KNEE OA Condition: Improved - Instructions Diet, Activity, Other Instructions: Please follow all instructions given to you by Dr. Contreras and his surgical team. You have a scheduled appointment to see Dr. Contreras in 2 weeks. You will need to have your dressings changed on 04/06. Your aquacel dressing will be changed to xeroform, 4x4s, and RAJENDRA wrap. It is very important to take a full dose aspirin (325mg) twice a day for 6 weeks to avoid blood clots. Referrals: Song Contreras DO [Staff Physician] - Disposition: HOME - Home Medications Comprehensive Discharge Medication List: Ambulatory Orders Duloxetine HCl [Cymbalta] 60 mg PO HS 02/15/20 clonazePAM [Klonopin -] 0.5 mg PO ASDIR PRN 02/15/20 Aripiprazole [Abilify -] 2 mg PO HS 03/27/20 Lamotrigine [Lamictal -] 100 mg PO HS 03/27/20 Oxycodone HCl/Acetaminophen [Oxycodone-Acetaminophen 10-325] 1 each PO TID 03/27/20 Quetiapine Fumarate [Seroquel -] 25 mg PO HS 03/27/20 Zolpidem Tartrate [Ambien] 10 mg PO HS PRN 03/27/20 Prescription Drug Monitoring Program (I-STOP) results: I-STOP reviewed and no issues identified This patient is new to me today: No Emergency Visit: No Critical Care patient: No - Discharge Referral Referred to [facility] No"
--- NOTE | 2020-04-03 08:19 | PN ---
Progress Note (short form) - Note Progress Note: ORTHOPEDIC SURGERY PROGRESS NOTE Department of Orthopedic Surgery SUBJECTIVE No acute events overnight. No complaints currently. Denies chest pain, shortness of breath, or calf pain. No nausea or vomiting. Tolerating oral intake. Pain controlled. PHYSICAL EXAMINATION General: Alert, oriented, cooperative and no distress. Right Lower Extremity: Dressing intact; Skin intact, no lesions, rashes or ulcers noted. Muscle mass equal and symmetric to contralateral side. No atrophy noted. No masses or effusions noted. No tenderness to palpation. LROM of the knee secondary to swelling and pain; Full passive and active ROM of the ankle and foot/toes, free from pain. EHL/TA/GS motor intact; SILT distally; 2+ DP pulses; Cap refill brisk. DVT Exam: No evidence of DVT seen on physical exam; No cords or calf tenderness; No significant calf/ankle edema. Intake & Output 04/01/20 04/02/20 04/03/20 23:59 23:59 23:59 Intake Total 7800 500 Output Total 800 Balance 7000 500 Intake: IV 1300 Oral 500 500 Other 6000 Output: Urine 700 Void 700 Estimated Blood Loss 100 Other: Voiding Method Urinal Toilet Toilet # Unmeasured Voids Void 1 1 Weight 245 lb Height 5 ft 7 in Body Mass Index (BMI) 38.3 Weight Measurement Method Standing Scale Active Medications Generic Name Dose Route Start Last Admin Trade Name Freq PRN Reason Stop Dose Admin Acetaminophen 650 mg 04/01/20 15:00 04/03/20 03:55 Tylenol - PO 04/04/20 14:59 650 mg Q6H CHAZ Administration Acetaminophen 1,000 mg 04/02/20 14:04 04/02/20 21:18 Ofirmev Injection - IVPB 04/03/20 14:04 1,000 mg Q6H PRN Administration PAIN LEVEL 1-5 Al Hydroxide/Mg Hydroxide 30 ml 04/01/20 12:08 Mylanta Oral Suspension - PO Q4H PRN DYSPEPSIA Aripiprazole 2 mg 04/01/20 22:00 04/02/20 21:18 Abilify PO 2 mg HS CHAZ Administration Ascorbic Acid 500 mg 04/01/20 22:00 04/02/20 21:17 Vitamin C - PO 500 mg BID CHAZ Administration Aspirin 325 mg 04/02/20 10:00 04/02/20 21:17 Asa - PO 325 mg BID CHAZ Administration Clonazepam 0.5 mg 04/01/20 14:19 Klonopin - PO Q12H PRN ANXIETY Duloxetine HCl 60 mg 04/01/20 22:00 04/02/20 21:17 Cymbalta - PO 60 mg HS CHAZ Administration Gabapentin 300 mg 04/01/20 22:00 04/02/20 21:17 Neurontin - PO 04/04/20 21:59 300 mg BID CHAZ Administration Lamotrigine 100 mg 04/01/20 22:00 04/02/20 21:17 Lamictal - PO 100 mg HS CHAZ Administration Multivitamins/Minerals/Vitamin C 1 tab 04/02/20 10:00 04/02/20 10:06 Tab-A-Vit - PO 1 tab DAILY CHAZ Administration Ondansetron HCl 4 mg 04/01/20 12:08 Zofran Injection IVPUSH Q6H PRN NAUSEA Oxycodone HCl 10 mg 04/02/20 13:30 04/03/20 06:01 Roxicodone - PO 10 mg Q6H PRN Administration PAIN LEVEL 6-10 Pantoprazole Sodium 40 mg 04/02/20 10:00 04/02/20 10:06 Protonix - PO 40 mg DAILY CHAZ Administration Quetiapine Fumarate 25 mg 04/01/20 22:00 04/02/20 21:17 Seroquel - PO 25 mg HS CHAZ Administration Senna/Docusate Sodium 2 tablet 04/01/20 22:00 04/02/20 21:17 Pericolace - PO 2 tablet BID CHAZ Administration Vital Signs (last) Temp Pulse Resp BP Pulse Ox 98.9 F 90 18 100/59 L 94 L 04/03/20 06:00 04/03/20 06:00 04/03/20 06:00 04/03/20 06:00 04/03/20 06:00 Laboratory 04/01/20 12:15 04/02/20 07:01 ASSESSMENT AND PLAN Ms. Huynh is a 40 year old female s/p Right TKA, POD 2 - Pain control: Transition to oral pain medications, minimize narcotic use - DVT prophylaxis (ASA 325mg BID x 6 weeks; SCD's B/L) - Ice/Elevation Right knee - Elevate HOB, encourage oral intake - Appreciate medical management (Nutrition optimization, decubitus precautions heel/sacrum) - PT daily; WBAT - Change dressings POD 5, and every 3 days afterwards. - Follow up in my office on POD 14 for wound check and staple removal (appointment already made) - Dispo planning
[2020-04-03] MEDS: GABAPENTIN 300 MG CAPSULE PO SCH (09:26)
[2020-04-03] MEDS: ASPIRIN 325 MG TABLET PO SCH (09:26)
[2020-04-03] MEDS: MULTIVITAMINS (DAILY MVI) TABLET (FP) PO SCH (09:26)
[2020-04-03] MEDS: PANTOPRAZOLE 40 MG TABLET PO SCH (09:27)
[2020-04-03] MEDS: SENNOSIDES/DOCUSATE COMBO (SENNA PLUS) TABLET (UD) PO SCH (09:27)
[2020-04-03 09:37] VITALS: BP 98/64; PULSE 92; TEMP 99.3
[2020-04-03] MEDS: ASCORBIC ACID 500 MG TABLET (FP) PO SCH (10:00)
--- NOTE | 2020-04-03 15:50 | PATH ---
Surgical Pathology Report Patient Name: WAI DIALLO Med. Rec. #: [id number] /Age/Gender: 1980 (Age: 40) / F Account: [id number] Location: [facility] Taken: 04/01/2020 Received: 04/01/2020 Reported: 04/03/2020 Physicians: Song Contreras MD Specimen(s) Received RIGHT KNEE BONES Clinical History Osteoarthritis right knee Final Diagnosis BONE, KNEE, RIGHT, TOTAL KNEE REPLACEMENT: BONE WITH DEGENERATIVE JOINT DISEASE, FIBROADIPOSE TISSUE, AND SYNOVIUM. Electronically Signed Amaya Brown M.D. Gross Description Received in formalin labeled "right knee bones," is an 11.5 x 9.5 x 2.0 cm aggregate of multiple youssef-yellow portions of bone and soft tissue, consistent with knee bones. There is a 1.0 cm in greatest dimension area of eburnation identified. The remaining articular surfaces are youssef-yellow and focally granular. The underlying trabecular bone is yellow and hard. Freight Tallier sections are submitted in one cassette, following decalcification. 04/02/2020 [facility]04/02/2020
== END 2020-04-03 11:02 | disposition home or self-care (01) | DRG 470 ==
LOC: FM/S 05:57
PROVIDERS: ADMIT Orthopaedic Surgery Sports Medicine; ATTEND Nurse Practitioner Acute Care
PROC: 0SRC0J9 Replacement of Right Knee Joint with Synthetic Substitute, Cemented, Open Approach (ICD-10-PCS; principal; 2020-04-01 09:12)
DX: M17.11 Unilateral primary osteoarthritis, right knee (principal); D50.9 Iron deficiency anemia, unspecified; D47.3 Essential (hemorrhagic) thrombocythemia; K59.03 Drug induced constipation; K90.0 Celiac disease; F32.9 Major depressive disorder, single episode, unspecified
CPT/HCPCS: 36415; 73560-TC-RT-FY; 80048; 85027; 88305-TC; 88311-TC; 94760; 97010-GP; 97110-GP; 97116-GP; 97162-GP; J0131

== ENCOUNTER 2020-06-03 06:50 | Inpatient (IN) | payer BC ==
[2020-05-29 09:47] VITALS: BMI 37.4
[2020-06-03] MEDS ORDERED: VANCOMYCIN 1,000 MG VIAL (RESTRICTED TO ID ONLY) ONE (08:32)
[2020-06-03] MEDS ORDERED: BUPIVICAINE 0.25%/MORPH PF/KETOROLAC - 51ML DISP.SYRINGE IA ONE ×2 (10:47→11:29)
[2020-06-03] MEDS ORDERED: ONDANSETRON 4 MG/2 ML VIAL IVPUSH PRN ×2 (11:08→12:16)
[2020-06-03] MEDS ORDERED: ACETAMINOPHEN 1000 MG/100 ML VIAL (NON FORMULARY) IVPB ONE (11:09)
[2020-06-03] MEDS ORDERED: LACTATED RINGERS SOLUTION 1,000 ML IV SCH ×2 (11:15→12:30)
[2020-06-03] MEDS ORDERED: VANCOMYCIN 1,000 MG VIAL (RESTRICTED TO ID ONLY) IVPB ONE (11:30)
[2020-06-03] MEDS ORDERED: MAG HYDROX/AL HYDROX/SIMETH 30 ML UNIT-DOSE CUP PO PRN (12:16)
[2020-06-03] MEDS ORDERED: ACETAMINOPHEN INJECTION 100 ML IVPB ONE (12:42)
[2020-06-03] MEDS: oxyCODONE HCL 5 MG TABLET PO PRN ×2 (15:12→18:06)
[2020-06-03] MEDS: ACETAMINOPHEN 325 MG TABLET (FP) PO SCH ×2 (18:06→23:35)
[2020-06-03] MEDS: SENNOSIDES/DOCUSATE COMBO (SENNA PLUS) TABLET (UD) PO SCH (21:26)
[2020-06-03] MEDS: GABAPENTIN 300 MG CAPSULE PO SCH (21:27)
[2020-06-03] MEDS: lamoTRIgine 100 MG TABLET PO SCH (21:27)
[2020-06-03] MEDS: DULoxetine HCL 30 MG CAPSULE.DR PO SCH (21:27)
[2020-06-03] MEDS: QUEtiapine FUMARATE 25 MG TABLET PO SCH (21:27)
[2020-06-03] MEDS: oxyCODONE HCL 10 MG SUSTAINED ACTING TABLET PO SCH (21:28)
[2020-06-03] MEDS: CEFAZOLIN 2 GM/D5W 2 GM/50 ML ML IVPB SCH (21:29)
[2020-06-03] MEDS: ARIPiprazole 2 MG TABLET PO SCH (21:29)
[2020-06-04] MEDS: CEFAZOLIN 2 GM/D5W 2 GM/50 ML ML IVPB SCH ×2 (01:19→09:14)
[2020-06-04] MEDS: ZOLPIDEM TARTRATE 5 MG TABLET PO PRN ×2 (01:25→21:18)
[2020-06-04] MEDS: oxyCODONE HCL 5 MG TABLET PO PRN ×3 (06:25→17:27)
[2020-06-04] MEDS: ACETAMINOPHEN 325 MG TABLET (FP) PO SCH ×5 (06:26→23:30)
[2020-06-04 07:50] LABS: HEMATOCRIT 29.9 % (32.4-45.2); HEMOGLOBIN 10.1 GM/dl (10.7-15.3); MCH 29.4 pg (25.7-33.7); MCHC 33.8 g/dl (32.0-36.0); MEAN CELL VOLUME 86.9 fl (80-96); MEAN PLT VOLUME 8.5 fl (7.5-11.1); PLATELET COUNT 655 K/MM3 (134-434); RBC 3.44 M/mm3 (3.60-5.2); RDW 15.8 % (11.6-15.6); WHITE BLOOD COUNT 21.9 K/mm3 (4.0-10.8)
[2020-06-04 07:51] LABS: CALCIUM 8.4 mg/dl (8.5-10); CREATININE 0.6 mg/dl (0.55-1.3); POTASSIUM 4.3 mmol/L (3.5-5.1)
[2020-06-04] MEDS: GABAPENTIN 300 MG CAPSULE PO SCH ×2 (09:14→21:11)
[2020-06-04] MEDS: MULTIVITAMINS (DAILY MVI) TABLET (FP) PO SCH (09:14)
[2020-06-04] MEDS: SENNOSIDES/DOCUSATE COMBO (SENNA PLUS) TABLET (UD) PO SCH ×2 (09:15→21:11)
[2020-06-04] MEDS: ASPIRIN 325 MG TABLET PO SCH ×2 (09:15→21:11)
[2020-06-04] MEDS: oxyCODONE HCL 10 MG SUSTAINED ACTING TABLET PO SCH ×2 (09:15→21:10)
[2020-06-04] MEDS: PANTOPRAZOLE 40 MG TABLET PO SCH (09:15)
[2020-06-04] MEDS: lamoTRIgine 100 MG TABLET PO SCH (21:11)
[2020-06-04] MEDS: ARIPiprazole 2 MG TABLET PO SCH (21:11)
[2020-06-04] MEDS: DULoxetine HCL 30 MG CAPSULE.DR PO SCH (21:11)
[2020-06-04] MEDS: QUEtiapine FUMARATE 25 MG TABLET PO SCH (21:11)
[2020-06-05 01:37] VITALS: PULSE 92
[2020-06-05] MEDS: oxyCODONE HCL 5 MG TABLET PO PRN ×2 (04:40→08:21)
[2020-06-05] MEDS: ACETAMINOPHEN 325 MG TABLET (FP) PO SCH (04:41)
[2020-06-05 06:29] VITALS: BP 113/71; TEMP 98.8
[2020-06-05 07:52] LABS: HEMATOCRIT 29.6 % (32.4-45.2); HEMOGLOBIN 9.8 GM/dl (10.7-15.3); MCH 28.7 pg (25.7-33.7); MEAN CELL VOLUME 86.9 fl (80-96); MEAN PLT VOLUME 8.1 fl (7.5-11.1); PLATELET COUNT 624 K/MM3 (134-434); RBC 3.41 M/mm3 (3.60-5.2); RDW 16.1 % (11.6-15.6); WHITE BLOOD COUNT 14.5 K/mm3 (4.0-10.8)
[2020-06-05] MEDS: PANTOPRAZOLE 40 MG TABLET PO SCH (09:15)
[2020-06-05] MEDS: oxyCODONE HCL 10 MG SUSTAINED ACTING TABLET PO SCH (09:15)
[2020-06-05] MEDS: ASPIRIN 325 MG TABLET PO SCH (09:15)
[2020-06-05] MEDS: SENNOSIDES/DOCUSATE COMBO (SENNA PLUS) TABLET (UD) PO SCH (09:15)
[2020-06-05] MEDS: MULTIVITAMINS (DAILY MVI) TABLET (FP) PO SCH (09:15)
[2020-06-05] MEDS: GABAPENTIN 300 MG CAPSULE PO SCH (09:15)
== END 2020-06-05 10:26 | disposition home or self-care (01) | DRG 470 ==
LOC: FM/S 06:50
PROVIDERS: ADMIT Orthopaedic Surgery Sports Medicine; ATTEND Registered Nurse Emergency
PROC: 0SRD0J9 Replacement of Left Knee Joint with Synthetic Substitute, Cemented, Open Approach (ICD-10-PCS; principal; 2020-06-03 09:22)
DX: M17.12 Unilateral primary osteoarthritis, left knee (principal); D50.9 Iron deficiency anemia, unspecified; F32.9 Major depressive disorder, single episode, unspecified
CPT/HCPCS: 36415; 73560-TC-LT-FY; 80048; 85027; 88304-TC; 88311-TC; 94760; 97116-GP; 97161-GP; J0131